=== PATIENT | male | born 1930 | race Caucasian/White ===

== ENCOUNTER 2017-02-02 15:59 | Emergency (ER) | payer MEDICARE ==
[2017-02-02 16:22] VITALS: BP 142/60
--- NOTE | 2017-02-02 16:26 | EDM.PDOC ---
ED HPI GENERAL MEDICAL PROBLEM - General Chief Complaint: Genitourinary Problem Stated Complaint: CATHETER ISSUES Time Seen by Provider: 02/02/17 16:13 Source of Information: Reports: Patient, Family (Daughter), RN Notes Reviewed History Limitations: Reports: No Limitations - History of Present Illness INITIAL COMMENTS - FREE TEXT/NARRATIVE: The patient underwent a TURP in early December 2015, and ever since then, he has required a chronic indwelling Pacheco. Ordinarily, his Foleys are replaced monthly , however, his most recent Pacheco, an 18 Fr, replaced on 01/23/2017, is likely too narrow, and the patient is leaking as much around the Pacheco as through the Pacheco. The patient's daughter called the walk-in clinic, but they instructed that she bring the patient here for Pacheco replacement. Otherwise, the patient is doing well, with no complaints. - Related Data Allergies Allergy/AdvReac Type Severity Reaction Status Date / Time No Known Allergies Allergy Verified 02/03/16 15:45 Home Meds: Home Meds Pravastatin Sodium [Pravastatin (Pravachol)] 40 mg PO DAILY 12/05/15 [History] Diltiazem [Cardizem CD] 180 mg PO DAILY #30 cap.cd 12/08/15 [Rx] Acetaminophen [Tylenol] 650 mg PO Q4H PRN 01/25/16 [History] Docusate Sodium [Colace] 100 mg PO BID PRN 01/25/16 [History] Cholecalciferol (Vitamin D3) [Vitamin D3] 1,000 mg PO DAILY 02/02/17 [History] Past Medical History HEENT History: Reports: Macular Degeneration Cardiovascular History: Reports: High Cholesterol, Hypertension Other Cardiovascular History: hyperlipidemia Respiratory History: Reports: Pneumonia, Recurrent Gastrointestinal History: Reports: Chronic Constipation Genitourinary History: Reports: BPH, Retention, Urinary, Other (See Below) Other Genitourinary History: TURP x 2 ; indwelling cath Musculoskeletal History: Reports: Fracture, Other (See Below) Other Musculoskeletal History: cast on right lower leg for ankle fracture Neurological History: Reports: TIA Other Neuro History: was neer seen by medical profession for TIA but states he did have one about 8years ago Oncologic (Cancer) History: Reports: Prostate - Infectious Disease History Infectious Disease History: Reports: MRSA - Past Surgical History HEENT Surgical History: Reports: Cataract Surgery Male Surgical History: Reports: Circumcision, Prostate Biopsy, TURP- Transurethral Resection of Prostate Social & Family History - Family History Family Medical History: Unobtainable Other HEENT Family History: pt is unsure of his family hx Cardiac: Reports: [place] - Tobacco Use Smoking Status *Q: Former Smoker Years of Tobacco use: 60 Packs/Tins Daily: 1 Used Tobacco, but Quit: Yes Month Tobacco Last Used: 10 - Caffeine Use Caffeine Use: Reports: Coffee - Alcohol Use Days Per Week of Alcohol Use: 7 Number of Drinks Per Day: 1 Total Drinks Per Week: 7 - Recreational Drug Use Recreational Drug Use: No - Living Situation & Occupation Living situation: Reports: , Extended Care Facility Occupation: Retired ED ROS GENERAL - Review of Systems Review Of Systems: See Below Constitutional: Reports: No Symptoms HEENT: Reports: No Symptoms Respiratory: Reports: No Symptoms Cardiovascular: Reports: No Symptoms Endocrine: Reports: No Symptoms GI/Abdominal: Reports: No Symptoms : Reports: No Symptoms Musculoskeletal: Reports: No Symptoms Skin: Reports: No Symptoms Neurological: Reports: No Symptoms Psychiatric: Reports: No Symptoms Hematologic/Lymphatic: Reports: No Symptoms Immunologic: Reports: No Symptoms ED EXAM, RENAL/ - Physical Exam Exam: See Below Exam Limited By: No Limitations General Appearance: Alert, WD/WN, No Apparent Distress Ears: Normal External Exam, Hearing Grossly Normal Nose: Normal Inspection, No Blood Throat/Mouth: Normal Inspection, Normal Lips, Normal Voice, No Airway Compromise Head: Atraumatic, Normocephalic Neck: Normal Inspection, Full Range of Motion Respiratory/Chest: No Respiratory Distress, Lungs Clear, Normal Breath Sounds, No Accessory Muscle Use Cardiovascular: Normal Peripheral Pulses, Regular Rate, Rhythm, No Gallop, No JVD, No Murmur, No Rub GI/Abdominal: Normal Bowel Sounds, Soft, Non-Tender, No Organomegaly, No Distention, No Abnormal Bruit, No Mass (Male) Exam: Deferred Rectal (Males) Exam: Deferred Extremities: Normal Inspection, Normal Range of Motion, No Pedal Edema, Normal Capillary Refill Neurological: Alert, Normal Cognition, No Motor/Sensory Deficits Psychiatric: Normal Affect Skin Exam: Warm, Dry, Intact, Normal Color, No Rash Lymphatic: No Adenopathy Course - Vital Signs Last Recorded V/S: Last Vital Signs Temp 36.3 C 02/02/17 16:19 Pulse 80 02/02/17 16:19 Resp 20 02/02/17 16:19 BP 142/60 H 02/02/17 16:19 Pulse Ox 94 L 02/02/17 16:19 - Orders/Labs/Meds Orders: Active Orders 24 hr Category Date Time Status Pacheco Catheter Insertion [Insert Urinary Catheter] [OM. Care 02/02/17 16:30 Ordered PC] Stat Urinary Catheter Removal [RC] Per Unit Routine Care 02/02/17 16:22 Active - Re-Assessments/Exams Free Text/Narrative Re-Assessment/Exam: 02/02/17 16:24 The patient's 18 Fr chronic indwelling Pacheco catheter was replaced with a 22 Fr catheter. Departure - Departure Time of Disposition: 16:24 Disposition: Home, Self-Care 01 Condition: Good Clinical Impression: Encounter for Pacheco catheter replacement - Discharge Information Referrals: Ashok Ramachandran MD [Primary Care Provider] - Forms: ED Department Discharge Additional Instructions: Mr. Tucker was seen in the emergency room to replace his Pacheco catheter. His Pacheco catheter was replaced. He should follow-up with his urologist at his next scheduled appointment. If any other problems, please do not hesitate to return to the ER. - My Orders Last 24 Hours: My Active Orders 02/02/17 16:22 Urinary Catheter Removal [RC] Per Unit Routine 02/02/17 16:30 Pacheco Catheter Insertion [Insert Urinary Catheter] [OM.PC] Stat - Assessment/Plan Last 24 Hours: My Active Orders 02/02/17 16:22 Urinary Catheter Removal [RC] Per Unit Routine 02/02/17 16:30 Pacheco Catheter Insertion [Insert Urinary Catheter] [OM.PC] Stat
== END 2017-02-02 17:00 | disposition home or self-care (01) ==
LOC: JD.ED 15:59
DX: Z46.6 Encounter for fitting and adjustment of urinary device (principal); I10 Essential (primary) hypertension; E78.00 Pure hypercholesterolemia, unspecified; Z87.01 Personal history of pneumonia (recurrent); Z79.899 Other long term (current) drug therapy; Z86.73 Personal history of transient ischemic attack (TIA), and cerebral infarction without residual deficits; Z85.46 Personal history of malignant neoplasm of prostate; Z98.49 Cataract extraction status, unspecified eye; Z98.890 Other specified postprocedural states; Z87.891 Personal history of nicotine dependence
CPT/HCPCS: 51702; 99282; 99283-25

== ENCOUNTER 2017-03-06 15:24 | Emergency (ER) | payer MEDICARE ==
[2017-03-06 15:38] VITALS: BP 142/56
[2017-03-06] MEDS ORDERED: Lidocaine 2% Jelly 10 ML Urojet MUCMEM ONE (16:03)
[2017-03-06] MEDS ORDERED: Levofloxacin 250 MG Tab PO ONE (16:08)
--- NOTE | 2017-03-06 16:08 | EDM.PDOC ---
ED HPI GENERAL MEDICAL PROBLEM - General Chief Complaint: Genitourinary Problem Stated Complaint: CATHETER CHANGE-SENT BY CLINIC Time Seen by Provider: 03/06/17 15:50 Source of Information: Reports: Patient, Family (spouse) History Limitations: Reports: No Limitations - History of Present Illness INITIAL COMMENTS - FREE TEXT/NARRATIVE: 86-year-old male presents to the ED at the request of the clinic for a Pacheco catheter change. Patient has a neurogenic bladder after having 2 transurethral resections of his prostate. He's had an indwelling Pacheco catheter for over a year. Never reason they said they could not change his Pacheco catheter in clinic. He was thus sent to the ED. Current catheter is 22-gauge in size with a 10 mL balloon. However he is still leaking around the balloon at times the urine draining from the catheter site at the urethral meatus. This suggest the balloon is not sleeping well in the bladder trigone. He has had numerous problems with urinary tract infections. He will have his catheter changed today but will receive Levaquin 500 milligrams orally as well. Onset: Other (Patient has a chronic indwelling Pacheco catheter for the last year. Due for catheter change today.) Duration: Chronic Location: Reports: Other (Pacheco catheter indwelling with leg bag) Quality: Reports: Other (No pain. Occasional leaking from the catheter at the urethral meatus.) Severity: Moderate (Catheters in place due to neurogenic bladder) Improves with: Reports: None Worsens with: Reports: None Context: Reports: Other (Neurogenic bladder). 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.) - Related Data Allergies Allergy/AdvReac Type Severity Reaction Status Date / Time No Known Allergies Allergy Verified 03/06/17 15:38 Home Meds: Home Meds Pravastatin Sodium [Pravastatin (Pravachol)] 40 mg PO DAILY 12/05/15 [History] Diltiazem [Cardizem CD] 180 mg PO DAILY #30 cap.cd 12/08/15 [Rx] Acetaminophen [Tylenol] 650 mg PO Q4H PRN 01/25/16 [History] Docusate Sodium [Colace] 100 mg PO BID PRN 01/25/16 [History] Cholecalciferol (Vitamin D3) [Vitamin D3] 1,000 mg PO DAILY 02/02/17 [History] Past Medical History HEENT History: Reports: Macular Degeneration Cardiovascular History: Reports: High Cholesterol, Hypertension Other Cardiovascular History: hyperlipidemia Respiratory History: Reports: Pneumonia, Recurrent Gastrointestinal History: Reports: Chronic Constipation Genitourinary History: Reports: BPH, Retention, Urinary, Other (See Below) Other Genitourinary History: TURP x 2 ; indwelling cath Musculoskeletal History: Reports: Fracture, Other (See Below) Other Musculoskeletal History: cast on right lower leg for ankle fracture Neurological History: Reports: TIA Other Neuro History: was neer seen by medical profession for TIA but states he did have one about 8years ago Oncologic (Cancer) History: Reports: Prostate - Infectious Disease History Infectious Disease History: Reports: MRSA - Past Surgical History HEENT Surgical History: Reports: Cataract Surgery Male Surgical History: Reports: Circumcision, Prostate Biopsy, TURP- Transurethral Resection of Prostate Social & Family History - Family History Family Medical History: Unobtainable Other HEENT Family History: pt is unsure of his family hx Cardiac: Reports: [place] - Tobacco Use Smoking Status *Q: Former Smoker Years of Tobacco use: 60 Packs/Tins Daily: 1 Used Tobacco, but Quit: Yes Month Tobacco Last Used: 10 yrs ago - Caffeine Use Caffeine Use: Reports: Coffee - Alcohol Use Days Per Week of Alcohol Use: 7 Number of Drinks Per Day: 1 Total Drinks Per Week: 7 - Recreational Drug Use Recreational Drug Use: No - Living Situation & Occupation Living situation: Reports: , Extended Care Facility Occupation: Retired ED ROS GENERAL - Review of Systems Review Of Systems: See Below Constitutional: Reports: Weakness, Fatigue, Decreased Appetite. Denies: Fever, Chills, Malaise, Weight Loss HEENT: Reports: No Symptoms Respiratory: Reports: Shortness of Breath Cardiovascular: Reports: Dyspnea on Exertion. Denies: Chest Pain (Chronically) , Blood Pressure Problem, Claudication, Orthopnea Endocrine: Reports: No Symptoms GI/Abdominal: Reports: No Symptoms, Constipation (Occasional) : Reports: Other (Chronic indwelling Pacheco catheter due to neurogenic bladder and urinary retention.) Musculoskeletal: Reports: Back Pain, Joint Pain (These hips and neck at times) Skin: Reports: No Symptoms Neurological: Reports: No Symptoms Psychiatric: Reports: No Symptoms Hematologic/Lymphatic: Reports: No Symptoms Immunologic: Reports: No Symptoms ED EXAM, RENAL/ - Physical Exam Exam: See Below Exam Limited By: No Limitations General Appearance: Alert (He is a little hard of hearing.), WD/WN, No Apparent Distress Respiratory/Chest: No Respiratory Distress, Lungs Clear, Normal Breath Sounds, No Accessory Muscle Use Cardiovascular: Normal Peripheral Pulses, Regular Rate, Rhythm, No Edema, No Gallop, No Murmur GI/Abdominal: Normal Bowel Sounds, Soft, Non-Tender, No Organomegaly, No Abnormal Bruit, No Mass (Male) Exam: Other (Has an indwelling Pacheco catheter which is 22-gauge intense cc balloon. Urine smells strong like it may be infected.) Back Exam: Normal Inspection, Full Range of Motion. No: CVA Tenderness (L), CVA Tenderness (R) Extremities: Normal Inspection, Normal Range of Motion, Non-Tender, No Pedal Edema Neurological: Alert, Oriented, CN II-XII Intact, Normal Cognition, Normal Gait Psychiatric: Normal Affect, Normal Mood Skin Exam: Warm, Dry, Intact, Normal Color, No Rash Course - Vital Signs Last Recorded V/S: Last Vital Signs Temp 36.1 C 03/06/17 15:36 Pulse 86 03/06/17 15:36 Resp 16 03/06/17 15:36 BP 142/56 H 03/06/17 15:36 Pulse Ox 97 03/06/17 15:36 - Orders/Labs/Meds Orders: Active Orders 24 hr Category Date Time Status Pacheco Catheter Insertion [Insert Urinary Catheter] [OM. Care 03/06/17 16:15 Ordered PC] Q24H Remove Urinary Catheter [Urinary Catheter Removal] [RC] Care 03/06/17 16:04 Active Per Unit Routine Urinary Catheter Assessment [RC] ASDIRECTED Care 03/06/17 16:06 Active CULTURE URINE [RM] Stat Lab 03/06/17 16:57 Results Labs: Laboratory Tests 03/06/17 Range/Units 16:57 Urine Color Light yellow (Yellow) Urine Appearance Cloudy H (Clear) Urine pH 6.0 (5.0-8.0) Ur Specific [place] 1.020 (1.005-1.030) Urine Protein 2+ H (Negative) Urine Glucose (UA) Negative (Negative) Urine Ketones Negative (Negative) Urine Occult Blood 3+ H (Negative) Urine Nitrite Positive H (Negative) Urine Bilirubin Negative (Negative) Urine Urobilinogen 0.2 (0.2-1.0) Ur Leukocyte Esterase 3+ H (Negative) Urine RBC 75-100 H (0-5) /hpf Urine WBC 75-100 H (0-5) /hpf Urine WBC Clumps Many (NOT SEEN) /hpf Ur Epithelial Cells 0-5 (0-5) /hpf Ur Squamous Epith Cells 0-5 (0-5) /hpf Ur Transition Epith Cell 0-5 (0-5) Ur Renal Epithelial Cell 0-5 (0-5) /hpf Amorphous Sediment Few H (NOT SEEN) /hpf Urine Bacteria Moderate H (FEW) /hpf Urine Mucus Few (FEW) /hpf Meds: Medications Discontinued Medications Generic Name Dose Route Start Last Admin Trade Name Charlie PRN Reason Stop Dose Admin Levofloxacin 500 mg 03/06/17 16:08 03/06/17 16:53 Levaquin PO 03/06/17 16:09 500 mg ONETIME ONE Administration Lidocaine HCl 10 ml 03/06/17 16:03 03/06/17 16:53 Xylocaine 2% Jelly MUCMEM 03/06/17 16:04 10 ml ONETIME ONE Administration - Radiology Interpretation Free Text/Narrative:: 86-year-old gentleman attends the ED for Pacheco catheter change. I'm unclear as to why he is attending the ED for this procedure. At any rate he has a chronic indwelling Pacheco catheter due to neurogenic bladder for the last year. Current Pacheco catheters 22-gauge with a 10 mL balloon. However the patient continues to leak urine intermittently around the catheter at the urethral meatus. This means that the balloon is not seen well on the trigone and will try a similar sized catheter with a larger balloon such as 20 or 30 mL if available. He will receive Levaquin 500 mg orally to prevent bacteremia from catheter change. Lidocaine jelly will he be used to instill into the urethra to facilitate catheter change. The leg bag will also of course be changed completely as well. Urinalysis will be collected and urine culture will be ordered. He does not appear ill at this time and temperatures 36.1. - Re-Assessments/Exams Free Text/Narrative Re-Assessment/Exam: 03/06/17 16:41 A Pacheco catheter placed and is a 20-gauge with a 30 mL balloon. Nurses appreciated difficulty passing this catheter. Time will tell if the larger balloon fits better in the bladder trigone and limits some of the Milner Benson catheter. He will follow-up with his normal provider as planned. Departure - Departure Time of Disposition: 16:55 Disposition: Home, Self-Care 01 Condition: Fair Clinical Impression: Neurogenic dysfunction of the urinary bladder, Chronic indwelling Pacheco catheter - Discharge Information Instructions: Neurogenic Bladder Referrals: Ashok Ramachandran MD [Primary Care Provider] - Forms: ED Department Discharge Additional Instructions: Evaluation the emergency room today in regards to Pacheco catheter change. There is also positive the catheter in terms of continued leaking of urine around the urethral meatus. This suggests the balloon could be made larger in size to prevent this type of leakage. The Pacheco catheter was changed today and you did receive antibiotic Levaquin 500 milligrams orally to prevent bacteria from entering your blood stream after urine catheter change. Anytime a catheter is in place for more than 10 days the urine becomes infected. Pacheco catheter changed today was a 20-gauge with a 30 mL balloon to see if this will help facilitate less leakage at the urethral meatus are where the catheter enters the penis. Follow-up with her personal doctor if you have any further problems. - My Orders Last 24 Hours: My Active Orders 03/06/17 16:04 Remove Urinary Catheter [Urinary Catheter Removal] [RC] Per Unit Routine 03/06/17 16:06 Urinary Catheter Assessment [RC] ASDIRECTED 03/06/17 16:15 Pacheco Catheter Insertion [Insert Urinary Catheter] [OM.PC] Q24H 03/06/17 16:57 CULTURE URINE [RM] Stat - Assessment/Plan Last 24 Hours: My Active Orders 03/06/17 16:04 Remove Urinary Catheter [Urinary Catheter Removal] [RC] Per Unit Routine 03/06/17 16:06 Urinary Catheter Assessment [RC] ASDIRECTED 03/06/17 16:15 Pacheco Catheter Insertion [Insert Urinary Catheter] [OM.PC] Q24H 03/06/17 16:57 CULTURE URINE [RM] Stat
== END 2017-03-06 17:30 | disposition home or self-care (01) ==
LOC: JD.ED 15:24
DX: N31.9 Neuromuscular dysfunction of bladder, unspecified (principal); E78.00 Pure hypercholesterolemia, unspecified; I10 Essential (primary) hypertension; Z87.01 Personal history of pneumonia (recurrent); Z86.73 Personal history of transient ischemic attack (TIA), and cerebral infarction without residual deficits; Z79.899 Other long term (current) drug therapy; Z98.49 Cataract extraction status, unspecified eye; Z87.891 Personal history of nicotine dependence
CPT/HCPCS: 51702; 81001; 87086; 87088; 87186; 99284; A9270; 99283

== ENCOUNTER 2017-03-10 14:02 | Emergency (ER) | payer MEDICARE ==
[2017-03-10 14:20] VITALS: BP 146/64
[2017-03-10] MEDS ORDERED: Lidocaine 2% Jelly 10 ML Urojet ONE (15:27)
[2017-03-10] MEDS ORDERED: Lidocaine 2% Jelly 10 ML Urojet MUCMEM ONE (15:44)
--- NOTE | 2017-03-10 15:50 | EDM.PDOC ---
ED HPI GENERAL MEDICAL PROBLEM - General Chief Complaint: Genitourinary Problem Stated Complaint: CATHETER IS LEAKING Time Seen by Provider: 03/10/17 14:23 Source of Information: Reports: Patient History Limitations: Reports: No Limitations - History of Present Illness INITIAL COMMENTS - FREE TEXT/NARRATIVE: The patient presents with barraza catheter problems. He has leaking from around the catheter. He had the same problem a few days ago and he was here. The barraza was changed. When he went home it started to leak again. He has a neurogenic bladder. Onset: Gradual Duration: Day(s): Severity: Mild Improves with: Reports: None Worsens with: Reports: None Associated Symptoms: Reports: No Other Symptoms - Related Data Allergies Allergy/AdvReac Type Severity Reaction Status Date / Time No Known Allergies Allergy Verified 03/06/17 15:38 Home Meds: Home Meds Pravastatin Sodium [Pravastatin (Pravachol)] 40 mg PO DAILY 12/05/15 [History] Diltiazem [Cardizem CD] 180 mg PO DAILY #30 cap.cd 12/08/15 [Rx] Acetaminophen [Tylenol] 650 mg PO Q4H PRN 01/25/16 [History] Docusate Sodium [Colace] 100 mg PO BID PRN 01/25/16 [History] Cholecalciferol (Vitamin D3) [Vitamin D3] 1,000 mg PO DAILY 02/02/17 [History] Levofloxacin [Levaquin] 500 mg PO DAILY #5 tablet 03/10/17 [Rx] Past Medical History HEENT History: Reports: Macular Degeneration Cardiovascular History: Reports: High Cholesterol, Hypertension Other Cardiovascular History: hyperlipidemia Respiratory History: Reports: Pneumonia, Recurrent Gastrointestinal History: Reports: Chronic Constipation Genitourinary History: Reports: BPH, Retention, Urinary, Other (See Below) Other Genitourinary History: TURP x 2 ; indwelling cath Musculoskeletal History: Reports: Fracture, Other (See Below) Other Musculoskeletal History: cast on right lower leg for ankle fracture Neurological History: Reports: TIA Other Neuro History: was neer seen by medical profession for TIA but states he did have one about 8years ago Oncologic (Cancer) History: Reports: Prostate - Infectious Disease History Infectious Disease History: Reports: MRSA - Past Surgical History HEENT Surgical History: Reports: Cataract Surgery Male Surgical History: Reports: Circumcision, Prostate Biopsy, TURP- Transurethral Resection of Prostate Social & Family History - Family History Family Medical History: Unobtainable Other HEENT Family History: pt is unsure of his family hx Cardiac: Reports: [place] - Tobacco Use Smoking Status *Q: Former Smoker Years of Tobacco use: 60 Packs/Tins Daily: 1 Used Tobacco, but Quit: Yes Month Tobacco Last Used: 10 - Caffeine Use Caffeine Use: Reports: Coffee, Energy Drinks, Soda - Alcohol Use Days Per Week of Alcohol Use: 7 Number of Drinks Per Day: 1 Total Drinks Per Week: 7 - Recreational Drug Use Recreational Drug Use: No - Living Situation & Occupation Living situation: Reports: , Extended Care Facility Occupation: Retired ED ROS GENERAL - Review of Systems Review Of Systems: See Below Constitutional: Reports: No Symptoms HEENT: Reports: No Symptoms Respiratory: Reports: No Symptoms Cardiovascular: Reports: No Symptoms Endocrine: Reports: No Symptoms GI/Abdominal: Reports: No Symptoms : Reports: Other (Barraza catheter problem) ED EXAM, GI/ABD - Physical Exam Exam: See Below Exam Limited By: No Limitations General Appearance: Alert, No Apparent Distress Ears: Normal External Exam Nose: Normal Inspection Head: Atraumatic, Normocephalic Neck: Normal Inspection Respiratory/Chest: No Respiratory Distress (Male) Exam: Other (Barraza catheter in place. The urethreal meatus has been streatched from the catheter.) Course - Vital Signs Last Recorded V/S: Last Vital Signs Temp 97.3 F 03/10/17 14:19 Pulse 81 03/10/17 14:19 Resp 20 03/10/17 14:19 BP 146/64 H 03/10/17 14:19 Pulse Ox 97 03/10/17 14:19 - Orders/Labs/Meds Meds: Medications Discontinued Medications Generic Name Dose Route Start Last Admin Trade Name Charlie PRN Reason Stop Dose Admin Lidocaine HCl Confirm 03/10/17 15:27 Xylocaine 2% Jelly Administered 03/10/17 15:28 Dose 10 ml .ROUTE .STK-MED ONE Lidocaine HCl 10 ml 03/10/17 15:44 Xylocaine 2% Jelly MUCMEM 03/10/17 15:45 ONETIME ONE - Re-Assessments/Exams Free Text/Narrative Re-Assessment/Exam: 03/10/17 16:20 I had my nurse put a larger catheter in and there is no leakage. His UA from the other day shows a UTI and he does have some suprapubic pain so I will start him on some levaquin. Departure - Departure Time of Disposition: 16:25 Disposition: Home, Self-Care 01 Condition: Good Clinical Impression: Urinary catheter (Barraza) change required, Neurogenic dysfunction of the urinary bladder UTI (urinary tract infection) Qualifiers: Urinary tract infection type: site unspecified Hematuria presence: without hematuria Qualified Code(s): N39.0 - Urinary tract infection, site not specified - Discharge Information Prescriptions: Levofloxacin [Levaquin] 500 mg PO DAILY #5 tablet Referrals: Ashok Ramachandran MD [Primary Care Provider] - Forms: ED Department Discharge Additional Instructions: Take the levaquin daily for 5 days. Follow up with your urologist. Please return if you are worse.
== END 2017-03-10 16:37 | disposition home or self-care (01) ==
LOC: JD.ED 14:02
DX: Z46.6 Encounter for fitting and adjustment of urinary device (principal); N31.9 Neuromuscular dysfunction of bladder, unspecified; N39.0 Urinary tract infection, site not specified; I10 Essential (primary) hypertension; E78.00 Pure hypercholesterolemia, unspecified; E78.5 Hyperlipidemia, unspecified; Z86.73 Personal history of transient ischemic attack (TIA), and cerebral infarction without residual deficits; Z98.49 Cataract extraction status, unspecified eye; Z98.890 Other specified postprocedural states; Z87.891 Personal history of nicotine dependence; Z87.01 Personal history of pneumonia (recurrent); Z79.2 Long term (current) use of antibiotics; Z79.899 Other long term (current) drug therapy
CPT/HCPCS: 51702; 99283; 99283-25

== ENCOUNTER 2017-08-08 13:11 | Emergency (ER) | payer MEDICARE ==
[2017-08-08] MEDS ORDERED: Lidocaine 2% Jelly 10 ML Urojet MUCMEM ONE (13:54)
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
[2017-08-08 15:42] VITALS: BP 150/67
== END 2017-08-08 15:35 | disposition home or self-care (01) ==
LOC: JD.ED 13:11
DX: N39.0 Urinary tract infection, site not specified (principal); B95.62 Methicillin resistant Staphylococcus aureus infection as the cause of diseases classified elsewhere; B96.5 Pseudomonas (aeruginosa) (mallei) (pseudomallei) as the cause of diseases classified elsewhere; N31.9 Neuromuscular dysfunction of bladder, unspecified; T83.038A Leakage of other urinary catheter, initial encounter; I10 Essential (primary) hypertension; E78.00 Pure hypercholesterolemia, unspecified; Z87.891 Personal history of nicotine dependence
CPT/HCPCS: 81001; 87086; 87088; 87186; 99283; 99284

== ENCOUNTER 2018-04-06 10:23 | Emergency (ER) | payer MEDICARE ==
[2018-04-06 10:52] VITALS: BP 110/63
--- NOTE | 2018-04-06 12:19 | EDM.PDOC ---
ED HPI GENERAL MEDICAL PROBLEM - General Chief Complaint: Genitourinary Problem Stated Complaint: TESTICLES SWOLLEN/PAIN Time Seen by Provider: 04/06/18 11:23 Source of Information: Reports: Patient, Family (Daughter) History Limitations: Reports: No Limitations - History of Present Illness INITIAL COMMENTS - FREE TEXT/NARRATIVE: The patient states that he has a chronic indwelling Pacheco, ever since 2014, due to BPH and urinary retention. He has his catheter changed every month, most recently this past , 04/04/2018, at the clinic. According to medical records from 04/04/2018, the patient had bloody drainage, both within and around the catheter, immediately after the catheter exchange. He had a great deal of discomfort, therefore came to the ED, where the catheter was removed, replaced, and irrigated. A CBC, CMP were unremarkable. He was given IV fluid. He was discharged home in satisfactory condition, with much clearer urine output. According to the patient's daughter, the patient developed testicular swelling while here at the ED, which has only gotten worse. He now presents with a swollen, ecchymotic, and painful scrotum. His urine output through the Pacheco is bloody, although there is no blood from around the Pacheco. No recent fever. No prior similar symptoms. The patient's PCP is Dr. Ramachandran. The patient's urologist is Dr. Shaver. Perineal Area Pain Score (Numeric/FACES): 5 - Related Data Allergies Allergy/AdvReac Type Severity Reaction Status Date / Time No Known Allergies Allergy Verified 04/06/18 10:52 Home Meds: Home Meds Pravastatin Sodium [Pravastatin (Pravachol)] 40 mg PO DAILY 12/05/15 [History] Diltiazem [Cardizem CD] 180 mg PO DAILY #30 cap.cd 12/08/15 [Rx] Acetaminophen [Tylenol] 650 mg PO Q4H PRN 01/25/16 [History] Docusate Sodium [Colace] 100 mg PO BID PRN 01/25/16 [History] Cholecalciferol (Vitamin D3) [Vitamin D3] 1,000 mg PO DAILY 02/02/17 [History] Cephalexin [IMW: Cephalexin] 500 mg PO BID #14 cap 08/08/17 [Rx] Ciprofloxacin [Ciprofloxacin HCl] 1 tab PO Q12H #14 tab 04/06/18 [Rx] traMADol [Ultram] 1 tab PO Q6H PRN #20 tab 04/06/18 [Rx] Past Medical History HEENT History: Reports: Macular Degeneration Cardiovascular History: Reports: High Cholesterol, Hypertension Genitourinary History: Reports: BPH, Retention, Urinary (chronic indwelling Pacheco since 2014) Musculoskeletal History: Reports: Fracture (right ankle 2016) Oncologic (Cancer) History: Reports: Prostate (s/p beam RTx) - Infectious Disease History Infectious Disease History: Reports: MRSA - Past Surgical History HEENT Surgical History: Reports: Cataract Surgery Male Surgical History: Reports: Circumcision, Prostate Biopsy, TURP- Transurethral Resection of Prostate (2009 or 2010, 2015) Social & Family History - Family History Family Medical History: Unobtainable Other HEENT Family History: pt is unsure of his family hx Cardiac: Reports: [place] - Tobacco Use Smoking Status *Q: Former Smoker Years of Tobacco use: 59 Packs/Tins Daily: 2 Month/Year Tobacco Last Used: Quit 2007 - Caffeine Use Caffeine Use: Reports: None Caffeine Use Comment: 8-10 cups of coffee/day - Alcohol Use Alcohol Use History: Yes Alcohol Use Frequency: Socially - Recreational Drug Use Recreational Drug Use: No - Living Situation & Occupation Living situation: Reports: , with Family (Son) Occupation: Retired ED ROS GENERAL - Review of Systems Review Of Systems: ROS reveals no pertinent complaints other than HPI. ED EXAM, RENAL/ - Physical Exam Exam: See Below Exam Limited By: No Limitations General Appearance: Alert, WD/WN, No Apparent Distress Eye Exam: Bilateral Eye: EOMI, Normal Inspection Ears: Normal External Exam, Hearing Grossly Normal Nose: Normal Inspection, No Blood Throat/Mouth: Normal Inspection, Normal Lips, Normal Voice, No Airway Compromise Head: Atraumatic, Normocephalic Neck: Normal Inspection, Full Range of Motion Respiratory/Chest: No Respiratory Distress, Lungs Clear, Normal Breath Sounds, No Accessory Muscle Use Cardiovascular: Normal Peripheral Pulses, Regular Rate, Rhythm, No Gallop, No JVD, No Murmur, No Rub GI/Abdominal: Normal Bowel Sounds, Soft, Non-Tender, No Organomegaly, No Distention, No Abnormal Bruit, No Mass (Male) Exam: Circumcised, Scrotal Swelling (bilateral), Scrotum Tenderness (L ), Scrotum Tenderness (R), Other (Scrotal ecchymosis) Rectal (Males) Exam: Deferred Back Exam: Normal Inspection, Full Range of Motion, NT Extremities: Normal Inspection, Normal Range of Motion, Normal Capillary Refill Neurological: Alert, Oriented, Normal Cognition, No Motor/Sensory Deficits Psychiatric: Normal Affect Skin Exam: Warm, Dry, Intact, Normal Color, No Rash Course - Vital Signs Last Recorded V/S: Last Vital Signs Temp 36.2 C 04/06/18 10:47 Pulse 112 H 04/06/18 10:47 Resp 15 04/06/18 10:47 BP 110/63 04/06/18 10:47 Pulse Ox 97 04/06/18 10:47 - Orders/Labs/Meds Orders: Active Orders 24 hr Category Date Time Status Scrotum and Contents [US] Stat Exams 04/06/18 11:57 Taken Labs: Laboratory Tests 04/06/18 Range/Units 12:35 WBC 12.28 H (4.23-9.07) K/mm3 RBC 3.92 L (4.63-6.08) M/mm3 Hgb 10.7 L (13.7-17.5) gm/L Hct 33.1 L (40.1-51.0) % MCV 84.4 (79.0-92.2) fl MCH 27.3 (25.7-32.2) pg MCHC 32.3 (32.2-35.5) g/dl RDW Std Deviation 43.2 (35.1-43.9) fL Plt Count 295 (163-337) K/mm3 MPV 8.8 L (9.4-12.3) fl Neutrophils % (Manual) 85 H (40-60) % Band Neutrophils % 4 (0-10) % Lymphocytes % (Manual) 5 L (20-40) % Atypical Lymphs % 0 % Monocytes % (Manual) 4 (2-10) % Eosinophils % (Manual) 2 (0.8-7.0) % Basophils % (Manual) 0 L (0.2-1.2) Platelet Estimate Adequate Poikilocytosis 1+ slight Anisocytosis 1+ slight RBC Morph Comment Not Reportable - Re-Assessments/Exams Free Text/Narrative Re-Assessment/Exam: 04/06/18 13:43 Ultrasound of the scrotum is read by [facility] as "Severe bilateral scrotal wall edema, uncertain etiology." 04/06/18 14:[address] Beard, urologist at [facility], at 13:58. Based on the patient's history, the ecchymosis is due to blood that is extravasated down to the scrotum by gravity, from a traumatic Pacheco placement, as opposed to a hematoma. He suspects that the Pacheco balloon was likely inflated within the prostate on the morning of 04/04/2018, then properly placed when he was seen in the ED that afternoon. Because the patient's elevated WBC count, he is recommending that we treat the patient with ciprofloxacin. He recommends that we leave the Pacheco in place, to allow the tissue to heal. 04/06/18 14:13 The above was discussed with the patient and two family members. I will discharge the patient home with prescriptions for ciprofloxacin and tramadol. Departure - Departure Time of Disposition: 14:05 Disposition: Home, Self-Care 01 Condition: Good Clinical Impression: Urethral injury - Discharge Information *PRESCRIPTION DRUG MONITORING PROGRAM REVIEWED*: Not Applicable *COPY OF PRESCRIPTION DRUG MONITORING REPORT IN PATIENT DANN: Not Applicable Prescriptions: Ciprofloxacin [Ciprofloxacin HCl] 1 tab PO Q12H #14 tab traMADol [Ultram] 1 tab PO Q6H PRN #20 tab PRN Reason: Pain (Severe 7-10) Instructions: Scrotal Swelling Referrals: Ashok Ramachandran MD [Primary Care Provider] - Andres Shaver MD [Consulting Physician] - Forms: ED Department Discharge Additional Instructions: You were seen in the emergency room for swelling and discoloration of your scrotum, along with continued bloody urine 3 her Pacheco. Workup in the ER included an ultrasound of your scrotum and a CBC. The ultrasound found that you have swelling of the scrotum, but no distinct hematoma (pocket of blood). Your white blood cell count was found to be mildly elevated. The case was discussed with the Urologist Dr. Beard. Based on your history, physical examination, and ultrasound results, he suspects that your urethra was injured when the Pacheco balloon was inflated, likely in your prostate, on the morning of 04/04/2018. This is what caused all the bleeding that you had. The Pacheco was then properly placed on the afternoon of 04/04/2018, in the ER. The discoloration and swelling of your scrotum is due to blood that has made its way down to the scrotum within the tissues due to gravity. Unfortunate, there is no way to get rid of the blood in your scrotal tissue - it will have to reabsorb on its own. Dr. Beard recommended that you be started on the antibiotic ciprofloxacin. Take one tablet every 12 hours, starting this evening, as prescribed. Finish the entire prescription unless told otherwise by a doctor. You have also been prescribed the pain medicine tramadol. Take one tablet up to every 6 hours, as needed for pain. Be aware that tramadol may cause constipation , so consider taking a stool softener. Continue to maintain your Pacheco catheter as you have been. Follow-up with your own Urologist, Dr. Bassem Shaver, at the next available appointment. If any other problems, please do not hesitate to return to the ER. - My Orders Last 24 Hours: My Active Orders 04/06/18 11:57 Scrotum and Contents [US] Stat - Assessment/Plan Last 24 Hours: My Active Orders 04/06/18 11:57 Scrotum and Contents [US] Stat
--- NOTE | 2018-04-10 09:39 | US ---
Testicular ultrasound: Multiple real-time images of both testicles were obtained. Diffuse scrotal wall thickening is seen. Small epididymal cysts are seen on both sides. Right epididymal cyst measures 0.8 cm in greatest dimension and left epididymal cyst measures 1.4 cm in greatest dimension. Testicles appear somewhat inhomogeneous in appearance. No discrete focal abnormality is seen within the testicles. No hydroceles are seen on either side. Impression: 1. Prominent but nonspecific scrotal wall thickening. 2. Epididymal cysts are noted on both sides. 3. Testicles appear somewhat inhomogeneous. Uncertain if this is real or due to artifact from the scrotal wall thickening. No focal abnormality otherwise is seen within the testicles. Diagnostic code #3 I agree with preliminary report from [facility], finalized at 04/06/18, 2:27 PM Central Time
== END 2018-04-06 14:35 | disposition home or self-care (01) ==
LOC: JD.ED 10:23
DX: S30.22XA Contusion of scrotum and testes, initial encounter (principal); S37.30XA Unspecified injury of urethra, initial encounter; I10 Essential (primary) hypertension; Z87.891 Personal history of nicotine dependence
CPT/HCPCS: 36415; 76870; 76870-26; 85007; 85027; 93975; 99283; 99284-25

== ENCOUNTER 2018-04-12 14:16 | Emergency (ER) | payer MEDICARE ==
[2018-04-12] MEDS ORDERED: Sodium Chloride 0.9% 10 ML Syringe FLUSH PRN (15:21)
[2018-04-12] MEDS ORDERED: Piperacillin/Tazobactam 4.5 GM in Sodium Chloride 0.9% 100 ML IV ONE (15:21)
[2018-04-12] MEDS ORDERED: Sodium Chloride 0.9% 1,000 ML IV SCH (15:30)
[2018-04-12] MEDS ORDERED: Sodium Chloride 0.9% 500 ML IV ONE (16:35)
[2018-04-12 17:15] VITALS: BP 136/72
[2018-04-12] MEDS ORDERED: Lidocaine 2% Jelly 10 ML Urojet MUCMEM ONE (18:20)
--- NOTE | 2018-04-15 15:50 | EDM.PDOC ---
ED HPI GENERAL MEDICAL PROBLEM - General Chief Complaint: Genitourinary Problem Stated Complaint: SWOLLEN TESTICLES Time Seen by Provider: 04/12/18 14:31 Source of Information: Reports: Patient, Family (daughter) - History of Present Illness INITIAL COMMENTS - FREE TEXT/NARRATIVE: patient has been brought to ED by daughter with ulceration of scrotum much worsened from first awareness last evening. He has hx of a traumatic barraza cath insertion at the clinic about 8 days ago. He presented to the ED that evening with severe pain, gross hematuria from barraza and leaking around the barraza. That catheter was removed, new catheter placed without difficulty by one of our RN's. He continued with hematuria but also now passing urine in the barraza and flushing, irrigating well and much less pain. He than presented to the ED 2 days later with a large scrotal hematoma. It was decided that this was likely extravasated blood from truamatic cath. insertion 2 days prior. Now has worsening ulcerated infection ant. scrotum. No fever or chills. The drainage from bladder has totally cleared from prior hematuria. - Related Data Allergies Allergy/AdvReac Type Severity Reaction Status Date / Time tramadol Allergy Hallucinati Verified 04/12/18 14:32 ons Home Meds: Home Meds Pravastatin Sodium [Pravastatin (Pravachol)] 40 mg PO DAILY 12/05/15 [History] Diltiazem [Cardizem CD] 180 mg PO DAILY #30 cap.cd 12/08/15 [Rx] Acetaminophen [Tylenol] 650 mg PO Q4H PRN 01/25/16 [History] Docusate Sodium [Colace] 100 mg PO BID PRN 01/25/16 [History] Cholecalciferol (Vitamin D3) [Vitamin D3] 1,000 mg PO DAILY 02/02/17 [History] Ciprofloxacin [Ciprofloxacin HCl] 1 tab PO Q12H #14 tab 04/06/18 [Rx] Past Medical History HEENT History: Reports: Macular Degeneration Cardiovascular History: Reports: High Cholesterol, Hypertension Other Cardiovascular History: hyperlipidemia Respiratory History: Reports: Pneumonia, Recurrent Gastrointestinal History: Reports: Chronic Constipation Genitourinary History: Reports: BPH, Retention, Urinary Other Genitourinary History: TURP x 2 ; indwelling cath Musculoskeletal History: Reports: Fracture Other Musculoskeletal History: cast on right lower leg for ankle fracture Neurological History: Reports: TIA Other Neuro History: was neer seen by medical profession for TIA but states he did have one about 8years ago Oncologic (Cancer) History: Reports: Prostate - Infectious Disease History Infectious Disease History: Reports: MRSA - Past Surgical History HEENT Surgical History: Reports: Cataract Surgery Male Surgical History: Reports: Circumcision, Prostate Biopsy, TURP- Transurethral Resection of Prostate Social & Family History - Family History Family Medical History: Unobtainable Other HEENT Family History: pt is unsure of his family hx Cardiac: Reports: [place] - Tobacco Use Smoking Status *Q: Former Smoker Used Tobacco, but Quit: Yes Month/Year Tobacco Last Used: 10 - Caffeine Use Caffeine Use: Reports: Coffee Caffeine Use Comment: 8-10 cups of coffee/day - Recreational Drug Use Recreational Drug Use: No - Living Situation & Occupation Living situation: Reports: , with Family (Son) Occupation: Retired ED ROS GENERAL - Review of Systems Review Of Systems: See Below Constitutional: Denies: Fever, Chills, Diaphoresis HEENT: Reports: No Symptoms Respiratory: Denies: Shortness of Breath, Pleuritic Chest Pain Cardiovascular: Denies: Chest Pain GI/Abdominal: Denies: Abdominal Pain, Nausea, Vomiting : Reports: Other (worsening ulcerated infection anterior scrotum, greenish yellow pus) Musculoskeletal: Denies: Back Pain Skin: Reports: Other. Denies: Rash Neurological: Reports: Weakness (mild generalized) ED EXAM, RENAL/ - Physical Exam Exam: See Below General Appearance: Alert, No Apparent Distress Throat/Mouth: Normal Inspection, Normal Oropharynx Head: Atraumatic. No: Facial Swelling Neck: Supple Respiratory/Chest: No Respiratory Distress, Lungs Clear, Normal Breath Sounds Cardiovascular: Regular Rate, Rhythm GI/Abdominal: Soft, Non-Tender. No: Guarding (Male) Exam: Other (large area of ulceration ant scrotum, foul smelling, colored pus type drainage present, localized swelling and tenderness ant scrotum , barraza cath present distal urethra, no hematuria present) Back Exam: No: CVA Tenderness (L), CVA Tenderness (R) Extremities: Normal Inspection. No: Pedal Edema, Leg Pain Neurological: Alert, No Motor/Sensory Deficits Skin Exam: Warm, Dry Course - Vital Signs Last Recorded V/S: Last Vital Signs Temp 97.6 F 04/12/18 14:26 Pulse 85 04/12/18 17:00 Resp 17 04/12/18 17:00 BP 136/72 04/12/18 17:00 Pulse Ox 98 04/12/18 17:00 - Orders/Labs/Meds Labs: Laboratory Tests 04/12/18 04/12/18 04/12/18 Range/Units 15:30 15:30 15:30 WBC 9.36 H (4.23-9.07) K/mm3 RBC 4.41 L (4.63-6.08) M/mm3 Hgb 12.0 L (13.7-17.5) gm/L Hct 37.2 L (40.1-51.0) % MCV 84.4 (79.0-92.2) fl MCH 27.2 (25.7-32.2) pg MCHC 32.3 (32.2-35.5) g/dl RDW Std Deviation 44.4 H (35.1-43.9) fL Plt Count 475 H (163-337) K/mm3 MPV 8.4 L (9.4-12.3) fl Neutrophils % (Manual) 84 H (40-60) % Band Neutrophils % 0 (0-10) % Lymphocytes % (Manual) 7 L (20-40) % Atypical Lymphs % 0 % Monocytes % (Manual) 5 (2-10) % Eosinophils % (Manual) 4 (0.8-7.0) % Basophils % (Manual) 0 L (0.2-1.2) Platelet Estimate Adequate Plt Morphology Comment Normal Anisocytosis 1+ sligh RBC Morph Comment Not Reportable Sodium 137 (136-145) mEq/L Potassium 3.7 (3.5-5.1) mEq/L Chloride 100 (98-107) mEq/L Carbon Dioxide 20 L (21-32) mEq/L Anion Gap 20.7 H (5-15) BUN 19 H (7-18) mg/dL Creatinine 1.5 H (0.7-1.3) mg/dL Est Cr Clr Drug Dosing 31.65 mL/min Estimated GFR (MDRD) 44 (>60) mL/min BUN/Creatinine Ratio 12.7 L (14-18) Glucose 105 (83-115) mg/dL Lactic Acid (0.4-2.0) mmol/L Calcium 8.8 (8.5-10.1) mg/dL Total Bilirubin 0.3 (0.2-1.0) mg/dL AST 27 (15-37) U/L ALT 28 (16-63) U/L Alkaline Phosphatase 91 (46-116) U/L C-Reactive Protein 10.4 H* (<1.0) mg/dL Total Protein 7.2 (6.4-8.2) g/dl Albumin 2.5 L (3.4-5.0) g/dl Globulin 4.7 gm/dL Albumin/Globulin Ratio 0.5 L (1-2) 04/12/ Range/Units 15:30 WBC (4.23-9.07) K/mm3 RBC (4.63-6.08) M/mm3 Hgb (13.7-17.5) gm/L Hct (40.1-51.0) % MCV (79.0-92.2) fl MCH (25.7-32.2) pg MCHC (32.2-35.5) g/dl RDW Std Deviation (35.1-43.9) fL Plt Count (163-337) K/mm3 MPV (9.4-12.3) fl Neutrophils % (Manual) (40-60) % Band Neutrophils % (0-10) % Lymphocytes % (Manual) (20-40) % Atypical Lymphs % % Monocytes % (Manual) (2-10) % Eosinophils % (Manual) (0.8-7.0) % Basophils % (Manual) (0.2-1.2) Platelet Estimate Plt Morphology Comment Anisocytosis RBC Morph Comment Sodium (136-145) mEq/L Potassium (3.5-5.1) mEq/L Chloride (98-107) mEq/L Carbon Dioxide (21-32) mEq/L Anion Gap (5-15) BUN (7-18) mg/dL Creatinine (0.7-1.3) mg/dL Est Cr Clr Drug Dosing mL/min Estimated GFR (MDRD) (>60) mL/min BUN/Creatinine Ratio (14-18) Glucose (83-115) mg/dL Lactic Acid 0.9 (0.4-2.0) mmol/L Calcium (8.5-10.1) mg/dL Total Bilirubin (0.2-1.0) mg/dL AST (15-37) U/L ALT (16-63) U/L Alkaline Phosphatase (46-116) U/L C-Reactive Protein (<1.0) mg/dL Total Protein (6.4-8.2) g/dl Albumin (3.4-5.0) g/dl Globulin gm/dL Albumin/Globulin Ratio (1-2) Meds: Medications Discontinued Medications Generic Name Dose Route Start Last Admin Trade Name Freq PRN Reason Stop Dose Admin Piperacillin Sod/Tazobactam 100 mls @ 200 mls/hr 04/12/18 15:21 04/12/18 15: 42 Sod 4.5 gm/ Sodium Chloride IV 04/12/18 15:50 200 mls/hr ONETIME ONE Administration Sodium Chloride 1,000 mls @ 150 mls/hr 04/12/18 15:30 04/12/18 17:18 Normal Saline IV 150 mls/hr ASDIRECTED AXEL Infusion Sodium Chloride 500 mls @ 999 mls/hr 04/12/18 16:35 Normal Saline IV 04/12/18 17:05 .BOLUS ONE Lidocaine HCl 10 ml 04/12/18 18:20 Xylocaine 2% Jelly MUCMEM 04/12/18 18:21 ONETIME ONE Sodium Chloride 10 ml 04/12/18 15:21 04/12/18 15:38 Saline Flush FLUSH 10 ml ASDIRECTED PRN Administration Keep Vein Open - Re-Assessments/Exams Free Text/Narrative Re-Assessment/Exam: 04/12/18 16:55. I did discuss this with Urologist station operator for [facility]. He does recomend we send him to the ED, [facility]. He will be evaluated there and than admitted for further treatment. Have given zosyn 4.5 gram IV. There is great concern that this could be early Fourier's Gangrene which does carry a very high mortality requiring emergent surgery. Transfer justified based on current sx, that concern. Departure - Departure Time of Disposition: 17:55 Disposition: DC/Tfer to Acute Hospital 02 Condition: Serious Clinical Impression: Scrotal infection - Discharge Information Referrals: Ashok Ramachandran MD [Primary Care Provider] - Forms: ED Department Discharge
== END 2018-04-12 19:00 ==
LOC: JD.ED 14:16
DX: N49.2 Inflammatory disorders of scrotum (principal); I10 Essential (primary) hypertension; E78.00 Pure hypercholesterolemia, unspecified; Z87.891 Personal history of nicotine dependence; Z88.6 Allergy status to analgesic agent; Z79.899 Other long term (current) drug therapy
CPT/HCPCS: 36415; 80053; 83605; 85007; 85027; 86140; 87040; 87070; 87077; 96361; 96365; 99285; J2543; J7030; J7040; J7050